=== PATIENT | male | born 1970 | race Caucasian/White ===

== ENCOUNTER 2019-01-14 10:22 | Emergency (ER) | payer MEDICAID ==
[~2019-01-14] VITALS: Ht 167.6 cm; Wt 68.0 kg
[2019-01-14 10:31] VITALS: BP 114/72; Ht 167.6 cm; Wt 68.0 kg
[2019-01-14] MEDS ORDERED: SOD CHLORIDE 0.9% 1,000 ML IV STA (11:18)
[2019-01-14] MEDS ORDERED: ONDANSETRON 4 MG INJ IV STA (11:18)
[2019-01-14] MEDS ORDERED: KETOROLAC 30 MG INJ IV STA (11:18)
[2019-01-14] MEDS ORDERED: MECLIZINE 12.5 MG TAB PO ONE (11:30)
[2019-01-14] MEDS ORDERED: MECL12.574 PO (12:28)
[2019-01-14] MEDS ORDERED: ONDA4TAB14 PO (12:28)
[2019-01-14 12:38] VITALS: PULSE 64; RESP 20
--- NOTE | 2019-01-14 13:13 | ERD ---
ER Documentation Chief Complaint Chief Complaint Dizziness x 1 week with headache today HPI 48-year-old male presenting with dizziness for the last week. Patient had a headache earlier today. No fevers. States the symptoms started last week after he was eating clams. He has not taken medications. He denies any chest pain or shortness of breath. Denies any vomiting denies visual changes. He states that he has weakness. Denies other medical problems. NKDA. Surgical history denies. Social history denies ROS All systems reviewed and are negative except as per history of present illness. Medications Home Meds Active Scripts Ondansetron (Ondansetron Odt) 4 Mg Tab.rapdis, 4 MG PO Q6H PRN for NAUSEA AND/OR VOMITING, #10 TAB Prov:GEORGE CLIFFORD PA-C 01/14/19 Meclizine Hcl* (Antivert*) 12.5 Mg Tab, 12.5 MG PO Q6H PRN for DIZZINESS, #20 T AB Prov:GEORGE CLIFFORD PA-C 01/14/19 PMhx/Soc Medical and Surgical Hx: pt denies Medical Hx, pt denies Surgical Hx Hx Alcohol Use: No Hx Substance Use: No Hx Tobacco Use: No Smoking Status: Never smoker FmHx Family History: No diabetes, No coronary disease, No other Physical Exam Vitals Vital Signs Date Temp Pulse Resp B/P (MAP) Pulse Ox O2 O2 Flow FiO2 Time Delivery Rate 01/14/19 96.4 64 20 98 Room Air 12:38 01/14/19 97.5 56 18 114/72 98 10:31 (86) Physical Exam GENERAL: The patient is well-appearing, well-nourished, in no acute distress HEENT: Atraumatic. Conjunctivae are pink. Pupils equal, round, and reactive to light. There is no scleral icterus. Tympanic membranes clear bilaterally. Oropharynx clear. CHEST: Clear to auscultation bilaterally. There are no rales, wheezes or rhonchi. HEART: Regular rate and rhythm. No murmurs, clicks, rubs or gallops. NEUROLOGIC: Alert and oriented. Cranial nerves II through XII intact. Motor strength in all 4 extremities with 5 out of 5 strength. Sensation grossly intact. Normal speech and gait. Result Diagram: 01/14/19 1137 01/14/19 1137 Results 24 hrs Laboratory Tests Test 01/14/19 11:37 White Blood Count 7.1 10^3/ul Red Blood Count 4.90 10^6/ul Hemoglobin 14.1 g/dl Hematocrit 41.4 % Mean Corpuscular Volume 84.5 fl Mean Corpuscular Hemoglobin 28.8 pg Mean Corpuscular Hemoglobin Concent 34.1 g/dl Red Cell Distribution Width 12.1 % Platelet Count 338 10^3/UL Mean Platelet Volume 10.7 fl Immature Granulocytes % 0.100 % Neutrophils % 48.2 % Lymphocytes % 40.4 % Monocytes % 5.9 % Eosinophils % 4.7 % Basophils % 0.7 % Nucleated Red Blood Cells % 0.0 /100WBC Immature Granulocytes # 0.010 10^3/ul Neutrophils # 3.4 10^3/ul Lymphocytes # 2.9 10^3/ul Monocytes # 0.4 10^3/ul Eosinophils # 0.3 10^3/ul Basophils # 0.1 10^3/ul Nucleated Red Blood Cells # 0.0 10^3/ul Urine Color STRAW Urine Clarity CLEAR Urine pH 7.0 Urine Specific Drake 1.004 Urine Ketones NEGATIVE mg/dL Urine Nitrite NEGATIVE mg/dL Urine Bilirubin NEGATIVE mg/dL Urine Urobilinogen NEGATIVE mg/dL Urine Leukocyte Esterase NEGATIVE Jimmie/ul Urine Hemoglobin NEGATIVE mg/dL Urine Glucose NEGATIVE mg/dL Urine Total Protein NEGATIVE mg/dl Sodium Level 139 mmol/L Potassium Level 3.9 mmol/L Chloride Level 105 mmol/L Carbon Dioxide Level 25 mmol/L Anion Gap 9 Blood Urea Nitrogen 14 mg/dl Creatinine 0.78 mg/dl Est Glomerular Filtrat Rate mL/min > 60 mL/min Glucose Level 101 mg/dl Calcium Level 9.9 mg/dl Total Bilirubin 1.2 mg/dl Direct Bilirubin 0.00 mg/dl Indirect Bilirubin 1.2 mg/dl Aspartate Amino Transf (AST/SGOT) 26 IU/L Alanine Aminotransferase (ALT/SGPT) 34 IU/L Alkaline Phosphatase 115 IU/L Total Protein 7.9 g/dl Albumin 4.7 g/dl Globulin 3.20 g/dl Albumin/Globulin Ratio 1.46 Current Medications Medications Dose Sig/Chalo Start Time Status Last (Trade) Ordered Route PRN Stop Time Admin Dose Reason Admin Sodium 1,000 ml @ Q1H STAT 01/14/19 DC 01/14/19 Chloride 1,000 mls/hr IV 11:18 11:44 01/14/19 12:17 Ondansetron 4 mg ONCE STAT 01/14/19 DC 01/14/19 HCl (Zofran IV 11:18 11:46 Inj) 01/14/19 11:19 Ketorolac 30 mg ONCE STAT 01/14/19 DC 01/14/19 Tromethamine IV 11:18 11:46 (Toradol) 01/14/19 11:19 Meclizine 12.5 mg ONCE ONCE 01/14/19 DC 01/14/19 HCl PO 11:30 11:46 (Antivert) 01/14/19 11:31 Procedures/MDM ER course: Meclizine and 1 L normal saline given in ED. Blood work within normal limits. MDM: 48-year-old male presenting with dizziness. Patient symptoms improved in the ER. There is indication for further imaging. Patient is discharged with supportive medications. I have low suspicion for cardiac emergency as patient does not have any radiating chest pain. Patient is discharged with strict ER precautions and told to follow-up with primary care within 1 to 2 days for close evaluation. She is told symptoms change or worsen to return immediately to the ER. All questions answered at discharge Departure Diagnosis: Primary Impression: Dizziness Condition: Stable Patient Instructions: Dizziness, Unk Cause Referrals: [facility] YOU HAVE RECEIVED A MEDICAL SCREENING EXAM AND THE RESULTS INDICATE THAT YOU DO NOT HAVE A CONDITION THAT REQUIRES URGENT TREATMENT IN THE EMERGENCY DEPARTMENT. FURTHER EVALUATION AND TREATMENT OF YOUR CONDITION CAN WAIT UNTIL YOU ARE SEEN IN YOUR DOCTORS OFFICE WITHIN THE NEXT 1-2 DAYS. IT IS YOUR RESPONSIBILITY TO MAKE AN APPOINTMENT FOR FOLOW-UP CARE. IF YOU HAVE A PRIMARY DOCTOR --you should call your primary doctor and schedule an appointment IF YOU DO NOT HAVE A PRIMARY DOCTOR YOU CAN CALL OUR PHYSICIAN REFERRAL HOTLINE AT IF YOU CAN NOT AFFORD TO SEE A PHYSICIAN YOU CAN CHOSE FROM THE FOLLOWING [facility] CL[facility]ICS [facility] [address] [facility] [address] [facility] [facility] [address] [facility] [address] [facility]. [facility] [address] [facility]. [facility] [address] Additional Instructions: FOLLOW UP WITH YOUR PRIMARY CARE PHYSICIAN TOMORROW.Return to this facility if you are not improving as expected. GEORGE CLIFFORD PA-C Jan 14, 2019 13:13
== END 2019-01-14 12:44 | disposition home or self-care (01) ==
LOC: FTE 10:22
DX: R42 Dizziness and giddiness (principal)
CPT/HCPCS: 80053; 81003; 85025; 96374; 96375; J1885; J2405; J7030; Z7502; Z7610